=== PATIENT | male | born 1970 | race Caucasian/White ===

== ENCOUNTER 2021-06-13 13:34 | Emergency (ER) | payer MEDICARE, OTHER ==
[2021-06-13 14:20] LABS: HEMOGLOBIN 13.2 gm/dl (14.0-17.5); RED BLOOD COUNT 4.44 M/UL (4.20-5.50); WHITE BLOOD COUNT 11.7 K/UL (4.5-11.0)
[2021-06-13 14:48] LABS: BUN/CREATININE RATIO 18 (0-10)
== END 2021-06-13 17:29 | disposition other institution (70) ==
LOC: ER1 13:34
PROVIDERS: Student in an Organized Health Care Education/Training Program
DX: R56.1 Post traumatic seizures (principal); S06.9X9A Unspecified intracranial injury with loss of consciousness of unspecified duration, initial encounter; S00.83XA Contusion of other part of head, initial encounter; F17.210 Nicotine dependence, cigarettes, uncomplicated; J18.9 Pneumonia, unspecified organism; Z20.822 Contact with and (suspected) exposure to COVID-19; W01.10XA Fall on same level from slipping, tripping and stumbling with subsequent striking against unspecified object, initial encounter
CPT/HCPCS: 36600; 70450; 71045; 72125; 80048; 80307; 81001; 82550; 82553; 82803; 84484; 85025; 93005; 96374; 96375; 99285; J0696; J1953; J2060; Q9967; U0002